=== PATIENT | female | born 1965 | race Hispanic/Latino ===

== ENCOUNTER 2018-08-28 13:22 | Emergency (ER) | payer MEDICARE, BC ==
[2018-08-28 13:23] VITALS: BMI 24.5
[2018-08-28 13:36] VITALS: RESP 18
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
[2018-08-28 15:19] VITALS: PULSE 98
[2018-08-28 18:38] VITALS: BP 102/70; TEMP 98; O2SAT 95
== END 2018-08-28 18:57 | disposition home or self-care (01) ==
LOC: ED 13:22
DX: F10.10 Alcohol abuse, uncomplicated (principal); E03.9 Hypothyroidism, unspecified; Z98.84 Bariatric surgery status